=== PATIENT | female | born 1995 | race Asian ===

== ENCOUNTER 2019-04-18 19:54 | Emergency (ER) | payer OTHER ==
[~2019-04-18 19:54] MED LIST: oxyCODONE/Acetamin 5/325 MG* TAB PO SCH
[2019-04-18] MEDS ORDERED: Morphine 4 MG/ML VIAL (1 ml) 4 MG/ML VIAL IV PRN (20:01)
[2019-04-18] MEDS ORDERED: Ketorolac INJ* 30 MG/ML 1 ML VIAL IV PUSH ONE (20:01)
[2019-04-18] MEDS ORDERED: Morphine 4 MG/ML VIAL (1 ml) 4 MG/ML VIAL IV ONE (20:01)
--- NOTE | 2019-04-18 20:03 | ED ---
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 She states she was snowboarding when she fell and landed on the arm. EMS noted obvious deformity of the left humerus and splinted the extremity STRATEGIC DEVELOPMENT MANAGER. She denies any other injuries. She denies numbness/tingling in the extremity. - History of Current Complaint Stated Complaint: LEFT HUMEROUS FRACTURE PER EMS Time Seen by Provider: 04/18/19 19:59 Hx Obtained From: Patient Mechanism Of Injury: Fall From A Standing Position Onset/Duration: Started Hours Ago Pain Location: Arm - Allergies/Home Medications Allergies/Adverse Reactions: Allergies Allergy/AdvReac Type Severity Reaction Status Date / Time No Known Allergies Allergy Verified 04/18/19 19:56 Home Medications: Home Medications oxyCODONE/Acetamin 5/325 MG* [Percocet 5/325 TAB*] 2 tab PO Q4H PRN #15 tab MDD 6 04/18/19 [Rx] PMH/Surg Hx/FS Hx/Imm Hx Cardiovascular History: Denies: Hx Coronary Artery Disease EENT History: Denies: Hx Deafness Infectious Disease History: No Infectious Disease History: Denies: Traveled Outside the [place] in Last 30 Days - Family History Known Family History: Negative: Seizure Disorder - Social History Occupation: Student Lives: Dormitory/Roommates Review of Systems Positive: Other - LUE pain Negative: Numbness All Other Systems Reviewed And Are Negative: Yes Physical Exam - Summary Physical Exam Summary: Appearance: Well-appearing, Well-nourished, lying in bed comfortably Skin: Warm, dry, no obvious rash Eyes: sclera anicteric, no conjunctival pallor ENT: mucous membranes moist, pharynx appears normal Neck: Supple, nontender Respiratory: Clear to auscultation, no signs of respiratory distress Cardiovascular: Normal S1, S2. No murmurs. Normal distal pulses in tibial and radial bilaterally. Abdomen: Soft, nontender, normal active bowel sounds present Musculoskeletal: Obvious deformity to the mid to distal humeral shaft on the left upper extremity. Neurological: A&Ox3, awake and alert, mentation is normal, speech is fluent and appropriate Psychiatric: affect is normal, does not appear anxious or depressed Triage Information Reviewed: Yes Vital Signs On Initial Exam: Initial Vitals Temp Pulse Resp BP Pulse Ox 98.6 F 93 20 121/98 98 04/18/19 19:56 04/18/19 19:56 04/18/19 19:56 04/18/19 19:56 04/18/19 19:56 Vital Signs Reviewed: Yes Procedures - Sedation Patient Received Moderate/Deep Sedation with Procedure: Yes Are You The Provider Who Administered The Sedation: Yes Name of Provider Whom Sedated Patient: Brant Rosenthal - Procedural Sedation/Analgesia Sedation Course: RT Present, Emergency Airway Equipment Available, Informed Consent Obtained, Time Out Completed Adverse Reactions Experienced by Patient: None Mallampati Classification: Class III ASA Classification: Class I: Normal/Healthy Pre-Procedural Heart: S1 and S2 Pre-Procedural Lungs: Clear Auscultation Comment/Plan of Care: Reduction of left humerus with Propofol. Provider Procedure Attestation: With My Signature Below, I Attest to have Personally Reviewed and Agree with the Pre-Sedation History and Pre-Service Assessment Update Cleared for Moderate Sedation: Yes Pre-Procedural Diagnosis: Comminuted, angulated fracture of left humerus. Post-Procedural Diagnosis: Humerus reduced Procedure: Humerus reduction Estimated Blood Loss: None Specimen(s): None Findings: None Implants/Tubes/Drains Placed: None - Joint Reduction Left Joint Reduction Site: elbow (L) Conscious Sedation: Yes - Propofol Reduction Attempts: 1 - Extension of left thumb is intact. No nerve damage noted in the first webbing. Pre-Procedure NV Exam: Yes Post Joint Reduction Film: joint reduced Diagnostics - Vital Signs Vital Signs Temp Pulse Resp BP Pulse Ox 04/18/19 19:56 98.6 F 93 20 121/98 98 - Laboratory Lab Statement: Any lab studies that have been ordered have been reviewed, and results considered in the medical decision making process. - Radiology Humerus XR Radiology Interpretation Completed By: ED Physician Summary of Radiographic Findings: Comminuted, angulated fracture of distal humeral shaft. Pending official radiology report. 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 Physical exam revealed obvious deformity to the mid to distal humeral shaft on the left upper extremity. Extremity was splinted by EMS STRATEGIC DEVELOPMENT MANAGER. Left humerus XR reveals Comminuted, angulated fracture of distal humeral shaft. Dr. Vigil, Orthopedics , was consulted, who stated will schedule her for surgery next week. Patient was sedated with 200 mg Propofol for left humoral reduction. Patient was adminsitered Morphine, Percocet, and Toradol for pain. Plan for discharge was discussed with the patient and she was agreeable with this plan. - Diagnoses Provider Diagnoses: Fracture of distal humerus Discharge ED - Sign-Out/Discharge Documenting (check all that apply): Patient Departure - Discharge Plan Condition: Improved Disposition: HOME Prescriptions: oxyCODONE/Acetamin 5/325 MG* [Percocet 5/325 TAB*] 2 tab PO Q4H PRN #15 tab MDD 6 PRN Reason: Pain - Severe Patient Education Materials: Arm Fracture in Adults (ED), Moderate Sedation (ED ) Referrals: Lorena Vigil MD [Medical Doctor] - 3 Days Additional Instructions: Contact the orthopedic office Sunday morning for followup. They will give you an appointment to come in and go over what the surgery you need will involve. In the meantime keep the splint on and take the pain medication as needed. - Billing Disposition and Condition Condition: IMPROVED Disposition: Home - Attestation Statements Document Initiated by Domenico: Yes Documenting Scribe: Jim Mariano Provider For Whom Domenico is Documenting (Include Credential): Brant Rosenthal MD Scribe Attestation: IJim, scribed for Brant Rosenthal MD on 04/19/19 at 2017. Scribe Documentation Reviewed: Yes Provider Attestation: The documentation as recorded by the Jim vasquez accurately reflects the service I personally performed and the decisions made by me, Brant Rosenthal MD Status of Scribe Document: Viewed
[2019-04-18] MEDS ORDERED: oxyCODONE/Acetamin 5/325 MG* TAB PO ONE (20:07)
[2019-04-18] MEDS ORDERED: Propofol* 10 MG/ML 20 ML BTL IV PUSH ONE (20:52)
[2019-04-18 23:37] VITALS: BP 128/81
== END 2019-04-18 23:39 | disposition home or self-care (01) ==
LOC: ED 19:54
DX: S42.352A Displaced comminuted fracture of shaft of humerus, left arm, initial encounter for closed fracture (principal); W00.9XXA Unspecified fall due to ice and snow, initial encounter; Y93.23 Activity, snow (alpine) (downhill) skiing, snowboarding, sledding, tobogganing and snow tubing; Y92.9 Unspecified place or not applicable
CPT/HCPCS: 24505; 96374; 96375; 99285; A9270-GY; J1885; J2270; J2704

== ENCOUNTER 2019-04-22 13:54 | Day surgery (SDC) | payer OTHER ==
--- NOTE | 2019-04-21 16:54 | HP ---
PREOPERATIVE HISTORY AND PHYSICAL: DATE OF ADMISSION/SURGERY: 04/22/19 DATE OF OFFICE VISIT/ENCOUNTER: 04/21/19 ATTENDING SURGEON: Lorena Vigil MD * (DICTATED BY JAUN HAWKINS) PROCEDURE: Open reduction and internal fixation, left humerus. HISTORY OF PRESENT ILLNESS: This is a 23-year-old female. 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 She sustained injury to her left arm while she was snowboarding on . She crashed and landed awkwardly on her left arm. She was seen at the emergency department at [facility] and x-ray showed a comminuted displaced fracture of the left humerus. She had the fracture reduced by Dr. Rosenthal and was splinted in a posterior splint. Dr. Vigil was consulted. The patient denies any associated numbness or tingling. She has minimal pain as long as she is at rest. She denies other injury. After review of x-rays and evaluation by Dr. Vigil, the patient has consented to proceed with surgical intervention for recommended best outcome. PAST MEDICAL HISTORY: Unremarkable. PAST SURGICAL HISTORY: None. CURRENT MEDICATIONS: None. ALLERGIES: No known drug allergies. FAMILY MEDICAL HISTORY: Noncontributory. 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 She denies tobacco use, recreational drug use, and does not drink alcohol. REVIEW OF SYSTEMS: Negative for general, cephalic, cardiovascular, respiratory , GI, , other musculoskeletal, integumentary, endocrine, neurologic, and hematologic symptoms. Infectious Disease: Negative for MRSA, hepatitis C, HIV. PHYSICAL EXAMINATION GENERAL: A well-developed, well-nourished 23-year-old female, in no acute distress. VITAL SIGNS: Height 5 feet 7-1/2 inches, weight 127 pounds. Pulse rate 78, blood pressure 132/70. HEENT: Normocephalic, atraumatic. Pupils are equal, round, and reactive to light and accommodation. Extraocular movements are intact. Throat is clear. NECK: Supple. No palpable lymph nodes. PULMONARY: Lungs are clear to auscultation bilaterally. No wheezes, rales, or rhonchi. CARDIOVASCULAR: Regular rate and rhythm. S1, S2. No murmurs, rubs, or gallops. No edema. ABDOMEN: Positive bowel sounds. Soft, nontender. NEUROLOGICAL: Alert and oriented x3. Cranial nerves II through XII are intact. MUSCULOSKELETAL: On exam of the left upper extremity, her arm is enclosed in a posterior splint. She has intact radial nerve function both motor and sensory. She can make a full fist and full extend her fingers. She has minimal swelling in her hand. Skin is intact. Neurovascular function is intact. IMAGING STUDIES: X-rays, AP, lateral, and oblique of the left humerus show a comminuted displaced fracture of the humeral shaft. IMPRESSION: Left humerus shaft fracture. PLAN: The patient is scheduled to undergo an open reduction and internal fixation, left humerus, with Dr. Vigil on 04/22/19. She will return to the office 10 days postop for followup and suture removal. She has supply of Percocet that was prescribed by the [facility] Emergency Room that will be refilled as needed for postoperative pain management. JAUN HAWKINS [id number]/[facility] #: [id number] MANUEL
[2019-04-22] MEDS ORDERED: ceFAZolin 2 GM in NS PREMIX(*) 2 GM/100 ML BAG IVPB ONE (14:21)
[2019-04-22] MEDS ORDERED: Midazolam* 1 MG/ML 5 ML VIAL (5 MG) ONE (14:57)
[2019-04-22] MEDS ORDERED: KETAMINE HCL* 50 MG/ML 10 ML VIAL ONE (14:57)
[2019-04-22] MEDS ORDERED: fentaNYL* 50 MCG/ML 2 ML VIAL (100 MCG VIAL) ONE (14:57)
[2019-04-22] MEDS ORDERED: ROPIVACAINE 5 MG/ML 30 ML BTL (0.5%) ONE (15:06)
[2019-04-22] MEDS ORDERED: Bupivacaine 0.5% SDV PF* 30ML VIAL ONE (16:31)
[2019-04-22] MEDS ORDERED: Propofol* 10 MG/ML 20 ML BTL ONE (17:13)
[2019-04-22] MEDS ORDERED: Acetaminophen IV 1GM/100ML * 100 ML ONE (17:13)
[2019-04-22] MEDS ORDERED: Lidocaine 2% PF * 5 ML VIAL ONE (17:13)
[2019-04-22] MEDS ORDERED: Ketorolac INJ* 30 MG/ML 1 ML VIAL ONE (17:13)
[2019-04-22] MEDS ORDERED: Ondansetron INJ* 2 MG/ML VIAL ONE (17:13)
[2019-04-22] MEDS ORDERED: PROCHLORPERAZINE INJ 5 MG/ML 2 ML VIAL ONE (17:13)
[2019-04-22] MEDS ORDERED: Dexamethasone IV* 4 MG/ML 1 ML (4 MG) ONE (17:13)
[2019-04-22] MEDS ORDERED: Naloxone* 0.4 MG/ML 1 ML VIAL IV PRN (17:56)
[2019-04-22] MEDS ORDERED: Scopolamine 1.5 mg* PATCH TRANSDERM PRN (17:56)
[2019-04-22] MEDS ORDERED: HYDROmorphone INJ1* 1 MG/ML SYRINGE IV PRN (17:56)
[2019-04-22] MEDS ORDERED: fentaNYL* 50 MCG/ML 2 ML VIAL (100 MCG VIAL) IV PRN (17:56)
[2019-04-22] MEDS ORDERED: DiMENhydriNATE IV* 50 MG/ML VIAL IV PUSH PRN (17:56)
[2019-04-22] MEDS ORDERED: PROCHLORPERAZINE INJ 5 MG/ML 2 ML VIAL IV PRN (17:56)
[2019-04-22] MEDS ORDERED: oxyCODONE TAB* 5 MG TAB PO PRN (17:56)
[2019-04-22 18:56] VITALS: BP 120/71
--- NOTE | 2019-04-23 02:42 | OP ---
DATE OF OPERATION: 04/22/19 - [facility] DATE OF : [birth year] SURGEON: Lorena Vigil MD. WHARF LABORER: JAUN Blood. ANESTHESIA: General and block. PRE-OP DIAGNOSIS: Comminuted and displaced fracture of the left humerus. POST-OP DIAGNOSIS: Comminuted and displaced fracture of the left humerus. OPERATIVE PROCEDURE: Open reduction internal fixation of the left humerus. ESTIMATED BLOOD LOSS: 20 mL. INDICATIONS FOR PROCEDURE: Shira is a 23-year-old female who was snowboarding. She fell and injured her left humerus. She has a markedly displaced fracture of the left mid shaft humerus with a large butterfly fragment. She presents for ORIF. DESCRIPTION OF PROCEDURE: The patient was brought to the operating room, was given a block and general anesthetic. She was placed in the right lateral decubitus position with her left arm out on an arm urias to give us access to the posterior aspect of her arm. The skin of her left upper extremity was prepped and draped in the usual sterile fashion. A posterior longitudinal incision was made and we dissected bluntly down to the triceps tendon. The triceps was split just to the lateral aspect of the triceps tendon so that the lateral and long head were . We then located the radial nerve which was at the side of the fracture at the proximal end. The nerve was intact. The nerve was carefully protected during the entirety of the case by the ophthalmic surgical assistant Michaela Mac. The 3 fracture fragments were reduced and then the butterfly fragment was secured to the distal fragment first with an independent lag screw 2.7 mm and then was secured to the proximal fragment with a second independent lag screw 2.7 mm. We then secured a 10-hole plate from the [employer] set for distal humerus and it was secured with 3 proximal screws, 1 lag screw in the center of the fracture, and 4 distal screws. The fracture was reduced anatomically. The wound was copiously irrigated with saline. The radial nerve was crossing the mid aspect of the plate. The wound after irrigating with saline was then closed in layered fashion, first by closing the triceps with #1 Vicryl suture. The subcutaneous tissue was closed with 2-0 Vicryl and the skin with skin alfred. The wound was dressed with Xeroform, 4x4 , Webril, and a posterior splint. The patient tolerated the procedure well and was brought to the recovery room in good condition. [id number]/[facility] #: [id number] MANUEL
[2019-04-25] MEDS ORDERED: Scopolamine PATCH Remove* 1 NOTE MISC PATCH OFF ONE (17:56)
== END 2019-04-22 19:13 | disposition home or self-care (01) ==
LOC: OREAST 13:54
PROVIDERS: ATTEND Orthopaedic Surgery
DX: S42.352A Displaced comminuted fracture of shaft of humerus, left arm, initial encounter for closed fracture (principal); G89.18 Other acute postprocedural pain; V00.321A Fall from snow-skis, initial encounter; Y93.23 Activity, snow (alpine) (downhill) skiing, snowboarding, sledding, tobogganing and snow tubing; Y92.39 Other specified sports and athletic area as the place of occurrence of the external cause
CPT/HCPCS: 81025; C1713; C1776; J0690; J0780; J1100; J1885; J2250; J2405; J2704; J2795; J3010; J3490

== ENCOUNTER 2019-04-26 14:48 | Emergency (ER) | payer OTHER ==
--- OUTSIDE RECORDS SUMMARY | 2019-04-26 15:25 | XMS REPORT | Continuity of Care Document ---
:1995 External Reference #:[id number] Author Name Lorena Vigil M.D. (transmitted by agent of provider Bonnie Nowak) Address [address] [place] [address] Care Team Providers Name Role Phone [facility] Care Team Information Weight Engineer Problems Description No Information Available Social History Type Date Description Comments Sex Unknown ETOH Use Denies alcohol use Tobacco Use Start: Unknown Patient has never smoked Smoking Status Reviewed: 04/21/19 Patient has never smoked Exercise Type/Frequency Exercises sporadically Allergies, Adverse Reactions, Alerts Description No Known Drug Allergies Medications Description No Active Medications Immunizations Description No Information Available Vital Signs Date Vital Result Comment 04/21/2019 2:47pm Height 67.5 inches 5'7.50" Weight 127.00 lb Heart Rate 78 /min BP Systolic 132 mmHg BP Diastolic 70 mmHg Respiratory Rate 18 /min Pain Level 3 BMI (Body Mass Index) 19.6 kg/m2 Results Description No Information Available Procedures Description No Information Available Medical Devices Description No Information Available Encounters Description No Information Available Assessments Date Code Description Provider 04/21/2019 S42.352A Displaced comminuted fracture of shaft of Lorena Vigil M.D. humerus, left arm, initial encounter for closed fracture Plan of Treatment Future Appointment(s):05/01/2019 8:00 am - Lorena Vigil M.D. at [facility]/21/2019 - Lorena Vigil M.D.S42.352A Displaced comminuted fracture of shaft of humerus, left arm, initial encounter for closed fractureFollow up:Follow up: 9-10 days postop Functional Status Description No Information Available Mental Status Description No Information Available Referrals Description No Information Available
[2019-04-26 16:06] VITALS: BP 110/76
--- NOTE | 2019-04-27 05:47 | ED ---
Upper Extremity Pain - HPI Summary HPI Summary: Patient is a 23yo F post op day 4 of an open reduction internal fixation of the left humerus presenting to the ED with concern for L hand swelling. Denies any pain, numbness or tingling to the area. Patient states she has been doing well except for noticing swelling to the L hand. No erythema, discoloration, decreased sensation or feeling or coldness to the hand. Denies any limitations upon movement of the fingers. Denies any pain to the arm or hand. No fevers, sweats or chills. Has been taking ibuprofen, but feels she does not need this anymore for pain. She has kept the arm in a sling, however upon arrival, it was noted by machine folder the arm was not properly placed in the sling. A posterior splint was placed by ortho surgeon post op. Despite this with jose f wrap and sling, the arm did not appear to be properly positioned in the sling as the hand was dependent. Dr. Berrios ortho surgeon. - History of Current Complaint Chief Complaint: EDExtremityUpper Stated Complaint: L HAND SWELLING POST SURGERY PT Time Seen by Provider: 04/26/19 15:04 Hx Obtained From: Patient Severity Initially: Mild Severity Currently: Mild Pain Location: Hand Aggravating Factor(s): Nothing Alleviating Factor(s): Nothing Associated Signs & Symptoms: Positive: Swelling Related History: Dominant Hand Right - Risk Factors Non-Orthopedic Risk Factor: Negative DVT Risk Factors: Negative Septic Arthritis Risk Factor: Negative - Allergies/Home Medications Allergies/Adverse Reactions: Allergies Allergy/AdvReac Type Severity Reaction Status Date / Time No Known Allergies Allergy Verified 04/22/19 14:30 Home Medications: Home Medications oxyCODONE/Acetamin 5/325 MG* [Percocet 5/325 TAB*] 2 tab PO Q4H PRN #15 tab MDD 6 04/18/19 [Rx] Ibuprofen TAB* [Motrin TAB* 400 MG] 2 tab PO DAILY PRN 04/22/19 [History Confirmed 04/22/19] PMH/Surg Hx/FS Hx/Imm Hx Previously Healthy: Yes Cardiovascular History: Denies: Hx Coronary Artery Disease Sensory History: Denies: Hx Deafness - Immunization History Hx Pertussis Vaccination: No Immunizations Up to Date: Yes Infectious Disease History: No Infectious Disease History: Denies: Traveled Outside the [place] in Last 30 Days - Family History Known Family History: Negative: Seizure Disorder - Social History Occupation: Unemployed Lives: With Family Alcohol Use: Rare Substance Use Type: Reports: None Smoking Status (MU): Never Smoked Tobacco Review of Systems Negative: Fever, Chills, Fatigue, Skin Diaphoresis Negative: Palpitations, Chest Pain Negative: Shortness Of Breath, Cough Genitourinary: Negative Positive: no symptoms reported, see HPI Positive: Other - swelling to the L hand. Negative: Arthralgia Skin: Negative Neurological/Mental Status: Negative All Other Systems Reviewed And Are Negative: Yes Physical Exam Triage Information Reviewed: Yes Vital Signs On Initial Exam: Initial Vitals Temp Pulse Resp BP Pulse Ox 98.3 F 88 16 131/81 98 04/26/19 14:51 04/26/19 14:51 04/26/19 14:51 04/26/19 14:51 04/26/19 14:51 Vital Signs Reviewed: Yes Appearance: Positive: Well-Appearing, No Pain Distress, Well-Nourished Skin: Positive: Warm, Skin Color Reflects Adequate Perfusion, Other - swelling Head/Face: Positive: Normal Head/Face Inspection Eyes: Positive: EOMI, RICK, Conjunctiva Clear Neck: Positive: Supple, No Lymphadenopathy Respiratory/Lung Sounds: Positive: Clear to Auscultation, Breath Sounds Present Cardiovascular: Positive: RRR, Pulses are Symmetrical in both Upper and Lower Extremities Musculoskeletal: Positive: Strength/ROM Intact Neurological: Positive: Normal, Sensory/Motor Intact, Alert, Oriented to Person Place, Time, Speech Normal Psychiatric: Positive: Normal, Affect/Mood Appropriate AVPU Assessment: Alert Procedures - Sedation Patient Received Moderate/Deep Sedation with Procedure: No Diagnostics - Vital Signs Vital Signs Temp Pulse Resp BP Pulse Ox 04/26/19 16:04 97.8 F 64 16 110/76 99 04/26/19 14:51 98.3 F 88 16 131/81 98 - Laboratory Lab Statement: Any lab studies that have been ordered have been reviewed, and results considered in the medical decision making process. Course/Dx - Course Course Of Treatment: Despite this with jose f wrap and sling, the arm did not appear to be properly positioned in the sling as the hand was dependent. On physical exam there is notable swelling to the dorsum of the L hand without discoloration, or cold sensation. Patient able to move all fingers well. Denies any pain or decreased sensation. Good cap refill throughout. Pulses +2 bilaterally to radial pulse. Unwrapped jose f wrap only and was able to visualize xeroform covered alfred to the humerus without erythema or drainage. Incision CDI. This was carefully replaced and jose f wrap applied again slightly loose with sling in proper position. No evidence of compartment syndrome. Swelling most likely d/t patient improper handling of sling and hand remaining in dependent position (below umbilicus.) Sling was properly positioned and pt was told to f/u as scheduled with Dr. Berrios. It was reassured to pt that swelling was normal s/p surgery and to keep the arm elevated in proper position. She understands concerning signs and symptoms and will return to the ED or call ortho if these symptoms occur. - Diagnoses Provider Diagnoses: Swelling of left hand Discharge ED - Sign-Out/Discharge Documenting (check all that apply): Patient Departure - Discharge Plan Condition: Stable Disposition: HOME [facility]errals: [facility] [Primary Care Provider] - Additional Instructions: Please follow up with Dr. Berrios as scheduled Return to the ED if you develop any discoloration of the hand or unable to feel the hand Keep the hand elevated and the arm properly positioned in the sling - Billing Disposition and Condition Condition: STABLE Disposition: Home - Attestation Statements Provider Attestation: I was available for consult. This patient was seen by the JOAQUINA. The patient was not presented to, seen by, or examined by me. Tobi Carmona MD
== END 2019-04-26 16:04 | disposition home or self-care (01) ==
LOC: ED 14:48
DX: M79.89 Other specified soft tissue disorders (principal); Z98.890 Other specified postprocedural states
CPT/HCPCS: 99281

== ENCOUNTER 2019-04-27 12:39 | Emergency (ER) | payer OTHER ==
--- NOTE | 2019-04-27 14:28 | ED ---
Upper Extremity Pain - HPI Summary HPI Summary: Patient arrives to the ED for the second time in 2 days with concern for left hand swelling. She continues to deny any pain. At this time, she has a concern for slight ecchymosis to the left little finger. This was not present on yesterday's visit. She continues to deny any numbness or tingling. No pain to the upper extremity over are of alfred. She is no longer taking IBuprofen as she has no pain. She does feel that the posterior arm splint is tight. She continues to be able to move all fingers and good crisp strength is intact. - History of Current Complaint Chief Complaint: EDExtremityUpper Stated Complaint: SWELLING IN HAND POST SURGERY PER PT Time Seen by Provider: 04/27/19 13:53 Hx Obtained From: Patient Onset/Duration: Started Hours Ago Timing: Constant Severity Initially: Mild Severity Currently: Mild Pain Location: Hand Aggravating Factor(s): Nothing Associated Signs & Symptoms: Positive: Swelling Related History: Dominant Hand Right - Allergies/Home Medications Allergies/Adverse Reactions: Allergies Allergy/AdvReac Type Severity Reaction Status Date / Time No Known Allergies Allergy Verified 04/27/19 12:45 Home Medications: Home Medications oxyCODONE/Acetamin 5/325 MG* [Percocet 5/325 TAB*] 2 tab PO Q4H PRN #15 tab MDD 6 04/18/19 [Rx] Ibuprofen TAB* [Motrin TAB* 400 MG] 2 tab PO DAILY PRN 04/22/19 [History Confirmed 04/22/19] PMH/Surg Hx/FS Hx/Imm Hx Previously Healthy: Yes Cardiovascular History: Denies: Hx Coronary Artery Disease Sensory History: Denies: Hx Deafness - Immunization History Hx Pertussis Vaccination: No Immunizations Up to Date: Yes Infectious Disease History: No Infectious Disease History: Denies: Traveled Outside the [place] in Last 30 Days - Family History Known Family History: Negative: Seizure Disorder - Social History Occupation: Unemployed, Student Lives: With Family Alcohol Use: Rare Hx Substance Use: No Substance Use Type: Reports: None Hx Tobacco Use: No Smoking Status (MU): Never Smoked Tobacco Review of Systems Negative: Fever, Chills, Fatigue, Skin Diaphoresis Negative: Chest Pain Negative: Shortness Of Breath, Cough Genitourinary: Negative Positive: no symptoms reported, see HPI Positive: Other - swelling of the hand Neurological/Mental Status: Negative All Other Systems Reviewed And Are Negative: Yes Physical Exam Triage Information Reviewed: Yes Vital Signs On Initial Exam: Initial Vitals Temp Pulse Resp BP Pulse Ox 98.8 F 95 16 134/83 97 04/27/19 12:42 04/27/19 12:42 04/27/19 12:42 04/27/19 12:42 04/27/19 12:42 Vital Signs Reviewed: Yes Appearance: Positive: Well-Appearing, Well-Nourished Skin: Positive: Warm, Skin Color Reflects Adequate Perfusion Head/Face: Positive: Normal Head/Face Inspection Eyes: Positive: EOMI, RICK, Conjunctiva Clear Neck: Positive: Supple, No Lymphadenopathy Respiratory/Lung Sounds: Positive: Clear to Auscultation, Breath Sounds Present Cardiovascular: Positive: RRR, Pulses are Symmetrical in both Upper and Lower Extremities Musculoskeletal: Positive: Normal, Strength/ROM Intact, Other - swelling to the left hand Neurological: Positive: Speech Normal Psychiatric: Positive: Normal, Affect/Mood Appropriate AVPU Assessment: Alert Procedures - Sedation Patient Received Moderate/Deep Sedation with Procedure: No Diagnostics - Vital Signs Vital Signs Temp Pulse Resp BP Pulse Ox 04/27/19 12:42 98.8 F 95 16 134/83 97 - Laboratory Lab Statement: Any lab studies that have been ordered have been reviewed, and results considered in the medical decision making process. Course/Dx - Course Course Of Treatment: On physical examination, patient appears well. She is denying any pain, numbness, tingling. She does have a concern for continuing left hand swelling and now is noting some slight ecchymosis to the left little finger. Patient has good industrial maintenance manager strength and full range of motion of the fingertips and denies any pain to the fingertips. Good cap refill. Pulses +2. No pain to the upper arm. Posterior splint gently removed. Alfred CDI. No signs of cellulitis or infection. Slight ecchymotic dependency with swelling to the elbow without pain to this area. No pain to the L shouder, elbow, wrist or forearm on palpation. Good sensation throughout. Able to flex and extend at the wrist. Propped hand slightly upward with a pillow without movement of the humerus and swelling decreased. Discussed with Dr. Carmona who also saw patient. Arm was gently reqrapped with xeroform, gauze, webril and posterior splint placed. NV intact pre and post splint. Secured in sling. Will f/u with Dr. Berrios on as scheduled. Reassured swelling was normal. - Diagnoses Provider Diagnoses: Hand swelling Discharge ED - Sign-Out/Discharge Documenting (check all that apply): Patient Departure - Discharge Plan Condition: Good Disposition: HOME Referrals: [facility] - Rickey PIMENTEL [Primary Care Provider] - Additional Instructions: Please follow up with Dr. Berrios Keep arm in sling until follow up - Billing Disposition and Condition Condition: GOOD Disposition: Home - Attestation Statements Provider Attestation: See my separate note
--- NOTE | 2019-04-27 14:52 | ED ---
Progress - Progress Note Progress Note: Dr. Carmona obtained hx from pt and friend. Pt broke her humerus while snowboarding at [employer] and had humerus surgery by Dr. Berrios on 04/22/19. Since then her hand has been swollen without pain, numbness, or tingling. She states her arm feels weak and "tight." She has tried ice and ibuprofen, which she claims has not helped. Dr. Carmona discussed the continued use of ice and ibuprofen with the pt as well as elevation of the arm to the extent that the arm 's ROM will allow. Physical exam noted the following: Constitutional: Well-developed, Well-nourished, Alert. (-) Distressed Skin: Warm, Dry HENT: Normocephalic; Atraumatic Eyes: Conjunctiva normal Neck: Musculoskeletal ROM normal neck. (-) JVD, (-) Stridor, (-) Tracheal deviation Cardio: Rhythm regular, rate normal, Heart sounds normal; Intact distal pulses; Radial pulses are 2+ and symmetric. (-) Murmur Pulmonary/Chest wall: Effort normal. (-) Respiratory distress, (-) Wheezes, (-) Rales Abd: Soft, (-) tenderness, (-) Distension, (-) Guarding, (-) Rebound Musculoskeletal: (-) Edema, Good pulses bilaterally in radius, No calf tenderness, No venous cords, No pain with dorsiflexion of foot. Left hand swollen, capillary refill less than 2s for all digits. Compartments soft in forearm and arm. Incision in arm with multiple alfred is clean, dry, and intact Lymph: (-) Cervical adenopathy Neuro: Alert, Oriented x3 Psych: Mood and affect Normal Course/Dx - Course Course Of Treatment: Patient is here with swelling in her left hand. Patient has no signs or symptoms of compartment syndrome on exam. Patient has strong radial pulse and good cap refill. Patient's main concern is that the swelling of her hand is an inconvenience to her. Patient was educated on elevating her arm as best as possible, ice, Motrin. Patient's surgical incision does not look infected. Patient will follow up with orthopedic surgeon on . - Diagnoses Provider Diagnoses: Hand swelling Discharge ED - Sign-Out/Discharge Documenting (check all that apply): Patient Departure - Discharge Plan Condition: Good Disposition: HOME [facility]errals: [facility] - Rickey PIMENTEL [Primary Care Provider] - Additional Instructions: Please follow up with Dr. Berrios Keep arm in sling until follow up - Billing Disposition and Condition Condition: GOOD Disposition: Home - Attestation Statements Document Initiated by Domenico: Yes Documenting Scribe: Silvano Padgett Provider For Whom Domenico is Documenting (Include Credential): Tobi Carmona MD Scribe Attestation: Silvano Rojas, scribed for Tobi Carmona MD on 04/27/19 at 1548. Scribe Documentation Reviewed: Yes Provider Attestation: The documentation as recorded by the Silvano vasquez accurately reflects the service I personally performed and the decisions made by , Tobi Carmona MD Status of Scribe Document: Viewed
[2019-04-27 15:34] VITALS: BP 118/70
== END 2019-04-27 15:33 | disposition home or self-care (01) ==
LOC: ED 12:39
DX: M79.89 Other specified soft tissue disorders (principal); Z98.890 Other specified postprocedural states
CPT/HCPCS: 99281